=== PATIENT | male | born 2005 | race Caucasian/White ===

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

== ENCOUNTER → 2024-05-10 13:08 | Outpatient (BNVA) | payer MEDICAID, SELFPAY ==
[2022-11-10 08:52] VITALS: BP 125/63; BMI 18.7
== END ==
PROVIDERS: Visit Provider Specialist
DX: G40.309 Generalized idiopathic epilepsy and epileptic syndromes, not intractable, without status epilepticus (principal); F84.0 Autistic disorder
CPT/HCPCS: 99213

== ENCOUNTER → 2024-11-03 09:56 | Outpatient (BNVA) | payer MEDICARE, MEDICAID, OTHER, SELFPAY ==
[2022-11-10 08:52] VITALS: BP 125/63; BMI 18.7
== END ==
PROVIDERS: Visit Provider Nurse Practitioner Psychiatric/Mental Health
DX: Z79.899 Other long term (current) drug therapy (principal)
CPT/HCPCS: 80053; 80061; 83036

== ENCOUNTER → 2024-11-08 08:30 | Outpatient (BNVA) | payer MEDICARE, OTHER, SELFPAY ==
[2022-11-10 08:52] VITALS: BP 125/63; BMI 18.7
== END ==
PROVIDERS: Visit Provider Specialist
DX: G40.309 Generalized idiopathic epilepsy and epileptic syndromes, not intractable, without status epilepticus (principal); F84.0 Autistic disorder; F31.12 Bipolar disorder, current episode manic without psychotic features, moderate
CPT/HCPCS: 99214

== ENCOUNTER → 2025-05-09 14:12 | Outpatient (BNVA) | payer MEDICARE, MEDICAID, SELFPAY ==
[2022-11-10 08:52] VITALS: BP 125/63; BMI 18.7
== END ==
PROVIDERS: Visit Provider Specialist
DX: G40.309 Generalized idiopathic epilepsy and epileptic syndromes, not intractable, without status epilepticus (principal); F84.0 Autistic disorder; F31.12 Bipolar disorder, current episode manic without psychotic features, moderate
CPT/HCPCS: 99213